=== PATIENT | female | born 1955 | race Caucasian/White ===

== ENCOUNTER 2018-05-26 10:26 | Observation (INO) | payer BC, MEDICAID ==
[~2018-05-26] VITALS: Ht 152.4 cm; Wt 118.4 kg
[~2018-05-26 10:26] MED LIST: ANTIBIOTIC
--- NOTE | 2018-05-26 11:01 | NUR ---
Patient ambulates with steady gait to room, reports shortness of breath with ambulation.
--- NOTE | 2018-05-26 11:13 | NUR ---
Dr. Victor at bedside evaluating patient.
--- NOTE | 2018-05-26 11:56 | NUR ---
Plan of care updated, questions answered, call pike within reach.
--- NOTE | 2018-05-26 11:57 | NUR ---
report received from CHIKA Cortes, awaiting lab/cxr and dispo at this time.
[2018-05-26 12:01] LABS: BASOPHILS # (AUTO) 0.03 x10^3/uL (0-0.1); BASOPHILS % (AUTO) 1 % (0-1); EOSINOPHILS # (AUTO) 0.12 x10^3/uL (0-0.4); EOSINOPHILS % (AUTO) 2 % (1-7); LYMPHOCYTES # (AUTO) 1.63 x10^3/uL (1-3.4); LYMPHOCYTES % (AUTO) 30 % (22-44); MD NO; MEAN CORPUSCULAR HEMOGLOBIN 32.7 pg (27.0-34.8); MEAN CORPUSCULAR HGB CONC 34.8 g/dL (32.4-35.8); MEAN CORPUSCULAR VOLUME 94.1 fL (80-100); MEAN PLATELET VOLUME 7.6 fL (7.4-10.4); MONOCYTES # (AUTO) 0.19 x10^3/uL (0.2-0.8); MONOCYTES % (AUTO) 3 % (2-9); NEUTROPHILS # (AUTO) 3.55 x10^3/uL (1.8-6.8); NEUTROPHILS % (AUTO) 64 % (42-75); PLATELET COUNT 279 x10^3/uL (130-400); RED BLOOD COUNT 4.56 x10^6/uL (3.82-5.3)
--- NOTE | 2018-05-26 12:04 | NUR ---
xray at bedside, pt awake, alert, resps even and unlabored.
[2018-05-26 12:13] LABS: D-DIMER 0.69 ug/mlFEU (0.00-0.52); INTERNATIONAL NORMALIZED RATIO 0.96 (0.93-1.1); PROTHROMBIN TIME 10.1 Seconds (9.6-11.5)
[2018-05-26 12:15] LABS: ALBUMIN 3.4 g/dL (3.4-5.0); ANION GAP 3 mmol/L (5-15); CALCIUM 8.6 mg/dL (8.5-10.1); CHLORIDE 109 mmol/L (98-107)
[2018-05-26 12:20] LABS: ALANINE AMINOTRANSFERASE 27 U/L (12-78); ALKALINE PHOSPHATASE 79 U/L (45-117); BILIRUBIN,TOTAL 0.2 mg/dL (0.2-1.0); CREATININE 0.87 mg/dL (0.55-1.02); TOTAL PROTEIN 6.7 g/dL (6.4-8.2); TROPONIN I 0.078 ng/mL (0.000-0.045)
--- NOTE | 2018-05-26 12:55 | NUR ---
Pt updated by MD regarding results and POC. PIV placed for CTA. pt a&o, resps even and unlabored, nsr on radiation monitor. awaiting CTA at this time, pt to be admitted.
[2018-05-26] MEDS ORDERED: LEVO200T PO (12:59)
[2018-05-26] MEDS ORDERED: ASPIRIN 81 MG TABLET CHEW PO ONE (13:30)
--- NOTE | 2018-05-26 13:30 | NUR ---
pt in CT at this time
[2018-05-26] MEDS ORDERED: ASPIRIN 81 MG TABLET CHEW ONE (13:31)
--- NOTE | 2018-05-26 13:41 | NUR ---
Pt medicated per emar, tolerated well. pt a&o, resps even and unlabored. pt denies pain. nsr on compliance monitor, no ectopy. awaiting CTA results and admit.
--- NOTE | 2018-05-26 14:29 | NUR ---
report called to receiving CHIKA Good, hospitalist MD Farah at bedside to admit pt. pt a&o, resps even and unlabored. nsr on quality assurance monitor body with no ectopy. pt denies any pain at this time. awaiting transport to cardiac tele once hospitalist assessment complete.
[2018-05-26] MEDS ORDERED: DOCUSATE 100 MG CAPSULE PO PRN (15:30)
[2018-05-26] MEDS ORDERED: ENALAPRILAT 1.25 MG/ML, 2ML IVPush PRN (15:30)
[2018-05-26] MEDS ORDERED: GABAPENTIN 300 MG CAPSULE PO PRN (15:30)
[2018-05-26] MEDS ORDERED: ACETAMINOPHEN 325 MG TABLET PO PRN (15:30)
[2018-05-26] MEDS: NICOTINE 7 MG/24 HR PATCH.TD24 TD SCH (15:30)
[2018-05-26] MEDS ORDERED: BISACODYL 10 MG SUPP PR PRN (15:30)
[2018-05-26] MEDS ORDERED: hydrALAzine 20 MG/ML, 1ML IVPush PRN (15:30)
[2018-05-26] MEDS ORDERED: LABETALOL 5MG/ML, 20ML IVPush PRN (15:30)
[2018-05-26] MEDS ORDERED: POLYETHYLENE GLYCOL 17 GM PACKET PO PRN (15:30)
[2018-05-26 15:40] LABS: BASOPHILS # (AUTO) 0.04 x10^3/uL (0-0.1); BASOPHILS % (AUTO) 1 % (0-1); EOSINOPHILS # (AUTO) 0.14 x10^3/uL (0-0.4); EOSINOPHILS % (AUTO) 2 % (1-7); LYMPHOCYTES # (AUTO) 1.81 x10^3/uL (1-3.4); LYMPHOCYTES % (AUTO) 32 % (22-44); MD NO; MEAN CORPUSCULAR VOLUME 94.2 fL (80-100); MEAN PLATELET VOLUME 7.7 fL (7.4-10.4); MONOCYTES % (AUTO) 5 % (2-9); NEUTROPHILS # (AUTO) 3.41 x10^3/uL (1.8-6.8); NEUTROPHILS % (AUTO) 60 % (42-75); PLATELET COUNT 284 x10^3/uL (130-400); RED BLOOD COUNT 4.53 x10^6/uL (3.82-5.3); RED CELL DISTRIBUTION WIDTH 14.9 % (9.6-15.2)
[2018-05-26 15:55] LABS: TROPONIN I 0.077 ng/mL (0.000-0.045)
[2018-05-26] MEDS: HEPARIN 5,000 UNITS/ML, 1ML SQ SCH (15:56)
[2018-05-26] MEDS ORDERED: LEVOTHYROXINE 100 MCG TABLET ONE (16:01)
[2018-05-26] MEDS: LEVOTHYROXINE 200 MCG TABLET PO SCH (16:02)
[2018-05-26 19:30] VITALS: BP 108/70
[2018-05-26 20:55] LABS: TROPONIN I 0.071 ng/mL (0.000-0.045)
[2018-05-27 02:04] VITALS: BP 130/83
[2018-05-27 05:42] LABS: CHLORIDE 108 mmol/L (98-107)
[2018-05-27 05:46] LABS: ANION GAP 5 mmol/L (5-15); CALCIUM 8.6 mg/dL (8.5-10.1); CREATININE 0.77 mg/dL (0.55-1.02)
[2018-05-27] MEDS: HEPARIN 5,000 UNITS/ML, 1ML SQ SCH ×3 (08:08→17:01)
[2018-05-27 08:09] VITALS: BP 152/94
[2018-05-27] MEDS: NICOTINE 7 MG/24 HR PATCH.TD24 TD SCH (08:24)
[2018-05-27] MEDS ORDERED: FUROSEMIDE 20 MG/2 ML IV ONE (10:30)
[2018-05-27 13:15] VITALS: BP 137/78
[2018-05-27] MEDS: FUROSEMIDE 20 MG/2 ML IV SCH (17:00)
[2018-05-27] MEDS ORDERED: LEVOTHYROXINE 100 MCG TABLET ONE (17:05)
[2018-05-27] MEDS: LEVOTHYROXINE 200 MCG TABLET PO SCH (17:06)
[2018-05-27 19:22] VITALS: BP 122/86
[2018-05-28] MEDS: HEPARIN 5,000 UNITS/ML, 1ML SQ SCH ×2 (01:03→08:30)
[2018-05-28 01:06] VITALS: BP 125/84
[2018-05-28 06:14] LABS: ALBUMIN 3.4 g/dL (3.4-5.0); ANION GAP 5 mmol/L (5-15); CALCIUM 8.9 mg/dL (8.5-10.1); CHLORIDE 105 mmol/L (98-107)
[2018-05-28 06:15] LABS: CREATININE 0.96 mg/dL (0.55-1.02)
[2018-05-28 06:45] VITALS: BP 132/75
[2018-05-28 07:38] VITALS: BP 142/82
[2018-05-28] MEDS: FUROSEMIDE 20 MG/2 ML IV SCH (07:39)
[2018-05-28] MEDS ORDERED: REGADENOSON 0.4 MG/5 ML SYRINGE ONE (10:17)
[2018-05-28 13:23] VITALS: BP 134/84
[2018-05-28] MEDS ORDERED: FURO40TA6 PO (13:43)
[2018-05-28] MEDS ORDERED: LEVO200T PO (13:43)
[2018-05-28] MEDS ORDERED: NICO-485 TD (13:43)
== END 2018-05-28 15:22 | disposition home or self-care (01) ==
LOC: ED 13:12 → INTOOBSV 13:59 → EDIP 13:59 → 5SO 15:37 → DCLOUNGE 05-28 15:09
PROVIDERS: ADMIT Hospitalist; ATTEND Hospitalist
DX: I50.31 Acute diastolic (congestive) heart failure (principal); R06.00 Dyspnea, unspecified; E89.0 Postprocedural hypothyroidism; D35.02 Benign neoplasm of left adrenal gland; M19.90 Unspecified osteoarthritis, unspecified site; F17.210 Nicotine dependence, cigarettes, uncomplicated; Z85.828 Personal history of other malignant neoplasm of skin; Z85.850 Personal history of malignant neoplasm of thyroid; Z91.14 Patient's other noncompliance with medication regimen
CPT/HCPCS: 0399T; 36415; 71045; 71275; 78452; 80048; 80053; 82040; 83735; 83880; 84439; 84443; 84484; 85025; 85379; 85610; 85730; 93005; 93017; 93306; 96372; 96374; 96376; 99284; A9502; C9898; G0378; J1644; J1940; J2785

== ENCOUNTER → 2019-08-04 | Outpatient (CLI) | payer BC ==
[~2019-08-04] MED LIST changes: +FURO40TA6 PO; +LEVO200T PO; +NICO-485 TD
== END | disposition home or self-care (01) ==
LOC: RAD 07:18
PROVIDERS: ATTEND Clinical Nurse Specialist
DX: K44.9 Diaphragmatic hernia without obstruction or gangrene (principal); K22.8 Other specified diseases of esophagus
CPT/HCPCS: 74240